=== PATIENT | female | born 2005 | race Caucasian/White ===

== ENCOUNTER 2023-07-30 22:27 | Emergency (ER) | payer BC, SELFPAY ==
[2023-07-30 22:36] VITALS: BP 117/73; PULSE 93; RESP 16; TEMP 36.1; O2SAT 98; BMI 23.2
--- NOTE | 2023-07-31 00:09 | ED.GENADULT ---
HPI - General Adult General Chief complaint: Fall Stated complaint: Lip lac/Fall Time Seen by Provider: 07/30/23 23:14 History of Present Illness HPI narrative: The patient is a college student who apparently slipped and fell in a restroom. She hit her face on a sink and in doing so bit into her lower lip sustaining a laceration both intraorally and this below the lip. There was no loss of consciousness. There is no altered mental status. There is no neck pain. There is no pain with moving the neck. No other injuries. Related Data Previous Rx's Medication Instructions Recorded amoxicillin 875 mg-potassium 1 tab PO BID #6 tabs 07/31/23 clavulanate 125 mg tablet Allergies Allergy/AdvReac Type Severity Reaction Status Date / Time No Known Allergies Allergy Verified 07/30/23 22:35 Review of Systems Review of Systems: Yes all other systems are reviewed and are negative [facility] Social History Social History Use of substances other than those prescribed or required for medical reasons: No Advance Directives: No Advance Directives Information Provided: No Patient : No Physical Exam ED Vital Signs: Vital Signs - 24 hr 07/30/23 22:36 Temperature 97.0 F Pulse Rate 93 Respiratory Rate 16 Blood Pressure 117/73 Pulse Oximetry 98 Oxygen Delivery Method Room Air BMI result Body Mass Index 23.2 Const Other: The patient has the appearance of an ordinarily healthy 18-year-old. She is awake and alert, pleasant and cooperative. She does not appear distress or acutely ill in any way. She has a laceration to the skin just below the lower lip. No other obvious signs of injury. HENMT Other: The patient has a 4 cm laceration just below and roughly parallel to the vermilion border of the left lower lip. The laceration extends slightly across the midline but is primarily on the left side. A laceration is somewhat irregular. Just opposite this wound is an intraoral laceration just below the wet-to-dry line of the inner lip. This laceration is approximately 3 cm in length. It is not clear that these 2 lacerations communicate. Also inside the lower lip and lower down in the vestibule is a very superficial laceration approximately 5 mm in length than which does not require suturing. Dentition is intact. No raccoon eyes. No pérez sign. Eyes Other: The eyes are unremarkable. No signs of trauma to the eyes. Pupils are round equal. Extraocular movements are intact Neck Other: No posterior midline C-spine tenderness. No pain with range of motion of the neck. The C-spine is clinically clear. Resp Effort & Inspection: normal respiratory effort Skin Other: Other than the laceration just below the left lower lip described in the HEENT exam skin is unremarkable. Neuro Other: The patient is awake, alert, pleasant, cooperative. GCS is 15. Demeanor is pleasant and nontoxic. Cranial nerves are grossly intact. She moves her extremities normally. She is neurologically intact Extrem Other: No injuries to the extremities Medications Administered Discontinued Medications Generic Name Dose Route Start Last Admin Trade Name Freq PRN Reason Stop Dose Admin Amoxicillin/Clavulanate Potassium 875 mg 07/31/23 00:08 07/31/23 00:20 Amoxicillin/Potassium Clav 875 Mg Tablet PO 07/31/23 00:09 875 mg ONCE ONE Administration Lidocaine HCl 5 ml 07/30/23 23:26 07/31/23 00:21 Lidocaine Hcl 1 % 20 Ml Vial INFILTRATI 07/30/23 23:27 5 ml ONCE ONE Administration Procedures Laceration Laceration 1: Site: other (The patient had a 3 cm intraoral laceration just below the wet-to-dry line of the left lower lip. This was closed with 3 simple interrupted stitches using 5 0 Vicryl Rapide) Laceration 2: Site: face Side (If applicable): left Size (cm): 4 Description: irregular Depth: simple, single layer Local Anesthetic: lidocaine 1% Amount of anesthesia used (mL): 3 Pre-repair: wound explored and irrigated extensively Skin layer closed with: nylon Size (cm): 6-0 Number of sutures: 4 Technique: simple, interrupted Medical Decision Making Medical Decision Making MDM Narrative: The patient is an ordinarily healthy 18-year-old who slipped and fell striking her chin against a sink. She sustained a to the skin just below the left lower lip. Opposite this laceration is a corresponding intraoral laceration. The mucosa. It is not clear if these lacerations actually communicate. The lacerations are primarily on the left side. The patient was given a left mental nerve block with 1% plain lidocaine. This was done in a 30 gauge needle. I injected 2.5 mL of 1% plain lidocaine through the mucosa at the base of the left canine. This provided good anesthesia to the wounds. First I closed the intraoral wound with 3 simple interrupted 5 0 Ethilon sutures. After the intraoral laceration was closed I then used a new kit to address the external wound. The external wound was copiously irrigated and closed using using 4 simple interrupted nylon stitches. Good wound edge approximation was achieved. Given the intraoral component to the wound the patient will be placed on Augmentin as with a wound infection prophylaxis. The patient is up-to-date on tetanus. The patient is a college student at [employer]. She will be home next week in [place], [place]. She should follow up with the regular doctor or local clinic for suture removal in 5-7 days Discharge Plan Discharge Clinical Impression: Laceration of face Patient Disposition: Home, Self-Care Instructions: Laceration (ED) Additional Instructions: The wound on the inside of your mouth was closed with 3 stitches which are absorbable and do not need to be removed. The wound externally was closed with 4 stitches that will need to be removed in about 1 week. Please plan on getting these stitches removed either on Tuesday or Tuesday. Please take the prophylactic antibiotic medication 2 times a day for 3 days. Apply bacitracin to the external wound 2 times a day for 2 days. Please get checked again if you have any concern about a wound infection. Prescriptions: New amoxicillin-pot clavulanate 875-125 mg tablet 1 tab PO BID Qty: 6 0RF
[2023-07-31] MEDS: Amoxicillin/Potassium Clav 875 MG TABLET PO (00:20)
[2023-07-31] MEDS: Lidocaine HCl 1 % 20 ML VIAL 5 ML INFILTRATI (00:21)
[2023-07-31] MEDS: Bacitracin Oint 0.9 GM PACKET 1 APPL TOPICAL (01:15)
== END 2023-07-31 01:18 | disposition home or self-care (01) ==
PROVIDERS: Emergency Provider Emergency Medicine
DX: S01.511A Laceration without foreign body of lip, initial encounter (principal); W01.10XA Fall on same level from slipping, tripping and stumbling with subsequent striking against unspecified object, initial encounter; Y93.9 Activity, unspecified; Y92.214 College as the place of occurrence of the external cause; Y99.8 Other external cause status
CPT/HCPCS: 12052; 99284